=== PATIENT | female | born 1930 | race Caucasian/White ===

== ENCOUNTER 2017-02-20 05:32 | Inpatient (IN) ==
[2017-02-20] MEDS ORDERED: PREGABALIN 75 MG CAPSULE PO SCH (06:00)
[2017-02-20] MEDS ORDERED: oxyCODONE 10 MG TAB.ER.12H PO SCH (06:45)
[2017-02-20] MEDS ORDERED: ceFAZolin 1 GM VIAL IV SCH (06:45)
[2017-02-20] MEDS ORDERED: ACETAMINOPHEN 500 MG TABLET PO SCH (06:45)
[2017-02-20] MEDS ORDERED: PROPOFOL 200 MG/20 ML VIAL IV ONE (07:40)
[2017-02-20] MEDS ORDERED: ESMOLOL 100 MG/10 ML VIAL IV ONE (07:40)
[2017-02-20] MEDS ORDERED: ROPIVACAINE HCL/PF 20 ML VIAL IJ ONE (07:40)
[2017-02-20] MEDS ORDERED: KETAMINE 100 MG/ML ML IV ONE (07:40)
[2017-02-20] MEDS ORDERED: MIDAZOLAM 2 MG/2 ML VIAL IV ONE (07:40)
[2017-02-20] MEDS ORDERED: TRANEXAMIC ACID 1,000 MG/10 ML VIAL IV ONE (07:40)
[2017-02-20] MEDS ORDERED: fentaNYL 100 MCG/2 ML VIAL IV ONE (07:40)
[2017-02-20] MEDS ORDERED: PHENYLEPHRINE 10 MG/ML VIAL IV ONE (07:40)
[2017-02-20] MEDS ORDERED: LIDOCAINE HCL/PF 100 MG/5 ML SYRINGE IV ONE (07:40)
[2017-02-20] MEDS ORDERED: ONDANSETRON 4 MG/2 ML VIAL IV ONE (07:40)
[2017-02-20] MEDS ORDERED: GLYCOPYRROLATE 0.2 MG/ML VIAL IV ONE (07:40)
[2017-02-20] MEDS ORDERED: GENTAMICIN SULFATE 800 MG/20 ML VIAL IR ONE (08:30)
[2017-02-20 08:43] LABS: Appearance,Urine CLEAR; Bacteria,Urine 0 /hpf (0); Bilirubin,Urine NEG (NEG); Color,Urine STRAW; Glucose,Urine (UA) NEGATIVE (NEG); Leukocyte Esterase,Urine 25 /uL (NEG); Mucus,Urine FEW /hpf (0); Nitrate,Urine NEG (NEG); Protein,Urine NEG (NEG); Urine Blood NEG mg/dL (<0.03); Urine RBC 1 /hpf (0-1); Urine Squamous Epithelial Cell < 1 /hpf (0-4); Urine WBC 12 /hpf (0-4); Urobilinogen,Urine NEG (NEG)
[2017-02-20] MEDS ORDERED: IPRATROPIUM/ALBUTEROL 3 ML AMPUL.NEB NEB PRN (08:54)
[2017-02-20] MEDS ORDERED: ONDANSETRON 4 MG/2 ML VIAL IV PRN ×2 (08:54→09:10)
[2017-02-20] MEDS ORDERED: HYDROmorphone 2 MG/ML SYRINGE IV PRN ×2 (08:54→09:10)
[2017-02-20] MEDS ORDERED: diphenhydrAMINE 50 MG/ML VIAL IV PRN (08:54)
[2017-02-20] MEDS ORDERED: MEPERIDINE 25 MG/ML SYRINGE IV PRN (08:54)
[2017-02-20] MEDS ORDERED: fentaNYL 100 MCG/2 ML VIAL IV PRN (08:54)
[2017-02-20] MEDS ORDERED: ePHEDrine 50 MG/ML AMPUL IV PRN (08:54)
[2017-02-20] MEDS ORDERED: METHOCARBAMOL 1,000 MG/10 ML VIAL IV PRN (08:54)
[2017-02-20] MEDS ORDERED: BENZOCAINE/MENTHOL 1 LOZENGE PO PRN ×2 (08:54→09:10)
[2017-02-20] MEDS ORDERED: LACTATED RINGERS 1,000 ML IV SCH (09:00)
[2017-02-20] MEDS ORDERED: MAGNESIUM HYDROXIDE 30 ML ORAL.SUSP PO PRN (09:10)
[2017-02-20] MEDS ORDERED: FLEETS ADULT ENEMA PR PRN (09:10)
[2017-02-20] MEDS ORDERED: TRANEXAMIC ACID 1,000 MG/10 ML VIAL IV SCH (09:10)
[2017-02-20] MEDS ORDERED: BISACODYL 10 MG SUPP.RECT PR PRN (09:10)
[2017-02-20] MEDS ORDERED: POLYETHYLENE GLYCOL 3350 17 GM PACKET PO PRN (09:10)
[2017-02-20] MEDS ORDERED: HYDROcodone/APAP 10/325MG TABLET PO PRN (09:10)
--- NOTE | 2017-02-20 09:10 | Brief Operative Note ---
Date of procedure: 02/20/17 Pre-op diagnosis: right shoulder djd and bicep tear Post-op diagnosis: same Procedure: Right reverse tsa and bicep tenodesis Grafts/Implants: Yes Anesthesia: GETA Complications Description: 02/20/17 09:09 none Surgeon: Ino Ritchie Youth Teacher: Bora Arreola Estimated blood loss (cc): 20 Specimens Removed/Pathology: none sent Condition: stable Disposition: PACU
[2017-02-20] MEDS ORDERED: ALBUTEROL SULFATE 1 PUFF INHALER IH PRN (09:13)
[2017-02-20] MEDS ORDERED: METOPROLOL TARTRATE 5 MG/5 ML VIAL IV ONE ×3 (09:36→11:05)
[2017-02-20] MEDS ORDERED: GENTAMICIN PER PHARMACY IV ONE (09:39)
[2017-02-20] MEDS ORDERED: GENTAMICIN SULFATE 80 MG in 0.9 % SODIUM CHLORIDE 250 ML IV SCH (09:45)
--- NOTE | 2017-02-20 10:03 | Operative Note ---
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 PROCEDURE: Right reverse total shoulder. SURGEON: Ino Ritchie M.D. ADVERTISING REP: Bora Arreola PA-C. ANESTHESIA: General LMA anesthesia. COMPLICATIONS: None. ESTIMATED BLOOD LOSS: 20 mL. IMPLANTS: A size 11 cementless stem with a metaglene with 4 screws per nurse's note and a 36 mm glenosphere with 6 mm of offset and 2 mm of the eccentricity. COMPLICATIONS: None. DESCRIPTION OF PROCEDURE: Patient brought to the operating room and put to sleep with general LMA anesthesia. Once asleep, the patient had the right shoulder confirmed as the operative site. Preop antibiotics and tranexamic acid were confirmed and given. We placed Ioban over the skin and isolated it from the operative field. We plated a deltopectoral incision from just above the coracoid to the deltoid insertion. I then elevated the interval of the deltopectoral interval, taking the cephalic vein laterally. We took any adhesions in the subdeltoid bursal region, identified the three vessels anteriorly, and released the subscap. Once the subscap was released, we then dislocated the humeral head and made our neck cut as low as we could near the capsule and retained any of the joint or ligaments and tendons. We irrigated thoroughly. I then performed a 360 degree capsular release around the glenoid, released and removed the anterior capsule, identifying the axillary nerve, protecting it from the operative field. I performed a biceps tenodesis to the pectoralis major with two [id number] stitches. I then exposed the joint and then removed the remnants of the biceps and the labrum. I then placed a pin centrally at 10 degrees of inclination and then reamed to a 36 reamer. I implanted a 36 metaglene with a 36 mm central screw, three screws to lock the metaglene into place. A 36 mm glenosphere with 2 mm of eccentricity and 6 mm of offset was placed. I then prepared the humeral side slightly countersinking the 11 stem. We trialed the 11 with a standard poly. This seemed to fit very well. We did have to lower the implant to make it less tight. I irrigated thoroughly. I then implanted a size 11 stem with a small amount of antibiotic cement on the distal stem to help with securing this because her bone was very soft. It was cementless proximally. I then placed a standard thickness poly and tapped it into place. I irrigated thoroughly and then reduced the component without difficulty. I irrigated thoroughly and then repaired the upper ligament of the subscap to its insertion site and took the shoulder through range of motion. It seemed to maintain reduction. I irrigated thoroughly and then closed the deltopectoral interval with 2-0 Vicryl and closed the skin with 2-0 Vicryl and adhesive closure. The patient tolerated this well without complication. RBH:steve Job ID: [id number] Doc ID: [id number] Ino Ritchie MD
--- NOTE | 2017-02-20 10:38 | XRay Report ---
HISTORY: Reason for Exam:Post-OP Total Shoulder FINDINGS: There is a well-positioned reverse total shoulder prosthesis. No fracture is present. There is a small crescentic dystrophic calcification above the acromion at the AC joint. IMPRESSION: Well-positioned right shoulder prosthesis Interpreted and Authenticated by: Frederick Huffman 02/20/17
[2017-02-20] MEDS ORDERED: METOPROLOL SUCCINATE 50 MG TAB.XL.24H PO ONE (10:55)
[2017-02-20] MEDS: 0.45 % SODIUM CHLORIDE 1,000 ML IV SCH ×2 (11:09→23:06)
[2017-02-20] MEDS: 0.9 % SODIUM CHLORIDE 10 ML SYRINGE IV SCH ×2 (12:28→23:06)
[2017-02-20] MEDS: ceFAZolin 1 GM VIAL IV SCH ×2 (16:13→23:06)
[2017-02-20] MEDS: DOCUSATE SODIUM 100 MG CAPSULE PO SCH (20:46)
[2017-02-20] MEDS ORDERED: TEMAZEPAM 15 MG CAPSULE PO PRN (21:00)
[2017-02-20] MEDS ORDERED: rOPINIRole 0.25 MG TABLET PO SCH (21:00)
[2017-02-20] MEDS ORDERED: SENNOSIDES 1 TABLET PO SCH (21:00)
[2017-02-20] MEDS ORDERED: MONTELUKAST 10 MG TABLET PO SCH (21:00)
[2017-02-20] MEDS: KETOROLAC 15 MG/ML VIAL IV PRN (23:29)
[2017-02-21] MEDS: ACETAMINOPHEN 325 MG TABLET PO PRN ×2 (03:59→13:42)
[2017-02-21] MEDS: 0.45 % SODIUM CHLORIDE 1,000 ML IV SCH (05:44)
[2017-02-21] MEDS: KETOROLAC 15 MG/ML VIAL IV PRN (05:45)
[2017-02-21] MEDS ORDERED: LEVOTHYROXINE 50 MCG TABLET PO SCH (07:30)
[2017-02-21] MEDS: 0.9 % SODIUM CHLORIDE 10 ML SYRINGE IV SCH (08:16)
[2017-02-21] MEDS: DOCUSATE SODIUM 100 MG CAPSULE PO SCH (08:51)
[2017-02-21] MEDS ORDERED: VIT A,C & E/LUTEIN/MINERALS TABLET PO SCH (09:00)
[2017-02-21] MEDS ORDERED: VITAMIN D3 1,000 UNIT TABLET PO SCH (09:00)
[2017-02-21] MEDS ORDERED: LISINOPRIL 5 MG TABLET PO SCH (09:00)
[2017-02-21] MEDS ORDERED: MAGNESIUM OXIDE 400 MG TABLET PO SCH (09:00)
[2017-02-21] MEDS ORDERED: VITAMIN B COMPLEX 1 CAPSULE PO SCH (09:00)
[2017-02-21] MEDS ORDERED: LUTEIN 20 MG PO SCH (09:00)
[2017-02-21] MEDS ORDERED: FISH OIL 1,000 MG CAPSULE PO SCH (09:00)
[2017-02-21] MEDS ORDERED: FOLIC ACID 1 MG TABLET PO SCH (09:00)
[2017-02-21] MEDS ORDERED: CALCIUM (OYSTER SHELL) 500 MG TABLET PO SCH (09:00)
[2017-02-21] MEDS ORDERED: FLU VACC QS2017-18 36MOS UP/PF 60 MCG/0.5 ML SYRINGE IM ONE (10:00)
--- NOTE | 2017-02-21 10:50 | Discharge Summary ---
Ortho Discharge - TSA - Patient Instructions Diet: Regular Diet Activity: activity as tolerated, weight bearing as tolerated Total Shoulder Protocol: Leave immobilizer in place except for bathing and ROM. Abduction pillow. Continue to wear sling until seen by physician. Codman Pendulum : These exercises use momentum produced by your body to move your shoulder joint. Bend your knees and shift your weight to your front leg, then back, allowing your arm to swing in the same directions. Using the same technique, alternately shift your weight between your right and left legs, allowing your arm to swing from side to side. These exercises are also performed in counterclockwise and clockwise circular motions. Typically these exercises are performed several times per day, for a set number repetitions or minutes, such as 20 times in a row or 5 minutes at a time. Dressing Care: Marileeel Ag - leave on for 5 days Patient Education: Shoulder Arthroplasty (DC) Additional Instructions: Discharge Instructions: Do the exercises at home that physical therapy gave you. You are scheduled to start physical therapy at [facility] on at 2:00 pm, please arrive 15 minutes early for paperwork. Take your prescription, photo ID, insurance cards, and current medication list with you to your first physical therapy appointment. Take your prescription to lease picker any medication or equipment (such as walker, crutches, toilet riser or C.P.M.) Wear comfortable clothing for your physical therapy. No weight bearing with right arm/hand. Keep arm in the immobilizer except for showering and exercises. You have Dermabond (a dressing with a mesh-like appearance), leave open to air. Do not remove this dressing. You may start showering on post op day #2. The Dermabond dressing can get wet, do not scrub dressing. Pat dry. To avoid constipation while taking any narcotic pain medication, take an over the counter stool softener/laxative. Use ice packs as directed, on for 20 minutes at a time throughout the day. This and elevation will help with pain and swelling. Call your physician for fevers above 100.5 or pain not controlled by medication. Your prescriptions are with your discharge information. Some medications were electronically transmitted to your pharmacy of choice. - Follow Up Plan Follow Up Appointments: Ino Ritchie MD [Physician] - 03/05/17 1:40 pm Disposition: Home, Self-Care Prognosis: Good Rehab Potential: Good I certify that the patient requires SNF services: No Overall status at discharge: patient is progressing back to baseline - Orders For Discharge Additional Discharge Orders: Physical Therapy at Discharge - TSA Location: Determined By Patient Brace/Splint Location: Determined By Patient
== END 2017-02-21 13:45 | disposition home or self-care (01) | DRG 483 ==
LOC: MEDSUR 05:32
PROVIDERS: ADMIT Orthopaedic Surgery; ATTEND Orthopaedic Surgery